=== PATIENT | male | born 1970 | race Caucasian/White ===

== ENCOUNTER 2016-04-23 19:00 | Emergency (ER) | payer BC ==
--- NOTE | 2016-04-23 20:24 | ED.PDOC ---
History of Present Illness - General Chief Complaint: Fever Stated Complaint: fever, aches Time Seen by Provider: 04/23/16 20:01 Source: patient Exam Limitations: no limitations Additional Information: STARTED YESTERDAY. MYALGIAS. FEVERS. - History of Present Illness Fever Severity/Quality: low grade Fever Therapy MICROBIOLOGY MANAGER: none Associated Symptoms: denies symptoms Review of Systems - Review of Systems Constitutional: States: chills, fever, malaise EENTM: States: no symptoms reported Respiratory: States: no symptoms reported Cardiology: States: no symptoms reported Gastrointestinal/Abdominal: States: no symptoms reported Genitourinary: States: no symptoms reported Musculoskeletal: States: muscle pain. Denies: joint pain Skin: States: no symptoms reported Neurological: States: no symptoms reported Endocrine: States: no symptoms reported Hematologic/Lymphatic: States: no symptoms reported All other Systems: Reviewed and Negative Past Medical History (General) - Patient Medical History Hx Hypertension: Yes Surgical History: no surgical history - Vaccination History Hx Influenza Vaccination: Yes Family Medical History - Family History Father Family History: Unknown Physical Exam - Physical Exam General Appearance: Alert, Well Hydrated Eye Exam: bilateral normal ENT Exam: normal ENT inspection, TMs normal, pharynx normal Neck: non-tender, full range of motion, supple Respiratory: chest non-tender, lungs clear, normal breath sounds Cardiovascular/Chest: normal peripheral pulses, regular rate, rhythm Gastrointestinal/Abdominal: normal bowel sounds, non tender Extremity: normal range of motion, non-tender 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 Departure - Departure Clinical Impression: Influenza B Disposition: Discharge to Home or Self Care Condition: Good Departure Forms: ED Discharge - Pt. Copy, Patient Portal Self Enrollment Instructions: Influenza Diet: resume usual diet Activity: increase activity as tolerated Prescriptions: Oseltamivir Phosphate [Tamiflu] 75 mg PO BID #10 cap Home Medications: Ambulatory Orders Oseltamivir Phosphate [Tamiflu] 75 mg PO BID #10 cap 04/23/16 Additional Instructions: Plenty of rest and fluid. Ibuprofen will help with the muscle aches.
[2016-04-23] MEDS ORDERED: OSELTAMIVIR 75 MG CAP PO ONE (20:26)
[2016-04-23 20:47] VITALS: BP 118/79; TEMP 99.4; O2SAT 95
== END 2016-04-23 20:47 | disposition home or self-care (01) ==
LOC: ER 19:00
DX: J10.1 Influenza due to other identified influenza virus with other respiratory manifestations (principal); I10 Essential (primary) hypertension

== ENCOUNTER 2016-05-15 17:26 | Emergency (ER) | payer BC ==
--- NOTE | 2016-05-15 17:43 | ED.PDOC ---
History of Present Illness - General Chief Complaint: Fever Stated Complaint: fever, body aches, vomiting, headache Time Seen by Provider: 05/15/16 17:27 Source: patient, RN notes reviewed, Vital Signs reviewed Exam Limitations: no limitations - History of Present Illness Initial Comments: Patient reports he started feeling bad about 10am this morning. Severe body aches, fever, headache and vomiting. Similar to when he was recently diagnosed with the flu but feels worse. Timing/Duration: this morning Fever Severity/Quality: subjective Fever Therapy YOGHURT MAKER: none Associated Symptoms: headache, muscle aches, nausea/vomiting Review of Systems - Review of Systems Constitutional: States: chills, fever, malaise EENTM: States: nose congestion. Denies: ear pain, throat pain Respiratory: Denies: cough, short of breath, stridor, wheezing Cardiology: States: no symptoms reported. Denies: chest pain Gastrointestinal/Abdominal: States: nausea, vomiting. Denies: abdominal pain Genitourinary: States: no symptoms reported Musculoskeletal: States: muscle pain Skin: States: no symptoms reported Neurological: States: headache. Denies: numbness, paresthesia, tingling Endocrine: States: no symptoms reported Past Medical History (General) - Patient Medical History Hx Hypertension: Yes Hx Gastroesophageal Reflux: Yes Surgical History: no surgical history - Vaccination History Hx Tetanus, Diphtheria Vaccination: No Hx Influenza Vaccination: Yes Hx Pneumococcal Vaccination: No - Social History Hx Tobacco Use: No Hx Alcohol Use: Yes - beer, occasional - Activities of Daily Living Hospice Agency (if applicable):: None - Female History Patient is a Female of Child Bearing Age (10 -59 yrs old): No Patient : No Family Medical History - Family History Father Family History: Unknown Physical Exam - Physical Exam General Appearance: Alert, Lethargic, Ill Appearing, Well Developed, Well Groomed, Well Hydrated, Well Nourished ENT Exam: hearing grossly normal, TMs normal, pharynx normal, nasal drainage Neck: non-tender, full range of motion, supple, lymphadenopathy (R), lymphadenopathy (L) Respiratory: lungs clear, normal breath sounds, no respiratory distress, no accessory muscle use Cardiovascular/Chest: no gallop, no JVD, no murmur, tachycardia Gastrointestinal/Abdominal: normal bowel sounds, non tender, soft, no organomegaly, no pulsatile mass Extremity: normal range of motion Neurologic: no motor/sensory deficits, alert, normal mood/affect, oriented x 3 Skin Exam: normal color, warm/dry Progress - Progress Progress: 05/15/16 20:39 Discussed results with patient. Suspect he does have the flu again. Will treat with Tamiflu. He is agreeable with plan. - Results/Orders Results/Orders: Laboratory Tests 05/15/16 05/15/16 18:15 19:15 WBC 12.4 H RBC 5.76 Hgb 16.2 Hct 48.3 MCV 83.9 MCH 28.1 MCHC 33.5 RDW 13.9 Plt Count 218 MPV 8.9 Absolute Neuts (auto) 10.70 H Absolute Lymphs (auto) 0.50 L Absolute Monos (auto) 1.10 H Absolute Eos (auto) 0.10 Absolute Basos (auto) 0.00 Neutrophils % 86.3 H Lymphocytes % 3.7 L Monocytes % 8.7 Eosinophils % 1.0 Basophils % 0.3 Sodium 135 Potassium 3.6 Chloride 100 L Carbon Dioxide 24 Anion Gap 14.6 BUN 22 H Creatinine 0.99 BUN/Creatinine Ratio 22.2 H Random Glucose 116 H Serum Osmolality 274.4 L Calcium 8.8 Total Bilirubin 0.6 AST 22 ALT 35 Alkaline Phosphatase 85 Serum Total Protein 7.4 Albumin 3.8 Globulin 3.6 H Albumin/Globulin Ratio 1.1 Group A Strep Rapid Negative Influenza A & B - Negative Departure - Departure Clinical Impression: Influenza Time of Disposition: 20:40 Disposition: Discharge to Home or Self Care Condition: Good Departure Forms: ED Discharge - Pt. Copy, Patient Portal Self Enrollment, Work Release Form Instructions: Influenza Diet: resume usual diet Activity: increase activity as tolerated Prescriptions: Oseltamivir Phosphate [Tamiflu] 75 mg PO BID #10 cap Home Medications: Ambulatory Orders Oseltamivir Phosphate [Tamiflu] 75 mg PO BID #10 cap 05/15/16 Pantoprazole Sodium [Protonix] 40 mg PO DAILY 05/15/16
--- NOTE | 2016-05-15 19:44 | RAD ---
PROCEDURE: Chest,2 Views CLINICAL HISTORY: fever INDICATION: Same as above COMPARISON: 04/02/2006 TECHNIQUE: PA and and lateral chest radiographs were obtained. FINDINGS: The lung parisi are well inflated. There are no discrete airspace infiltrates, pneumothoraces or pleural effusions. The pulmonary vascularity is normal The cardiomediastinal silhouette is unremarkable for patient's age and sex. IMPRESSION: There is no acute pleural-parenchymal process seen in the imaged lung parisi. Place of interpretation: [facility]. Electronically signed by: Cullen Mcclelland MD 05/15/2016 6:29 PM [facility]
[2016-05-15] MEDS ORDERED: OSELTAMIVIR 75 MG CAP PO ONE (20:19)
[2016-05-15] MEDS ORDERED: IBUPROFEN 200 MG TAB PO ONE (20:19)
[2016-05-15 20:52] VITALS: BP 104/70; TEMP 100.4; O2SAT 100
== END 2016-05-15 20:54 | disposition home or self-care (01) ==
LOC: ER 17:26
DX: J11.1 Influenza due to unidentified influenza virus with other respiratory manifestations (principal); I10 Essential (primary) hypertension